=== PATIENT | female | born 1995 | race Caucasian/White ===

== ENCOUNTER 2018-07-23 17:19 | Emergency (ER) | payer OTHER ==
[~2018-07-23] VITALS: Ht 162.6 cm; Wt 70.3 kg
[2018-07-23] MEDS ORDERED: PREVIFEM TABLE1 EACH (17:37)
[2018-07-23] MEDS ORDERED: DICLOFENAC POTA50 MG PO (21:55)
== END 2018-07-23 22:46 | disposition home or self-care (01) ==
LOC: ER 17:19
DX: S20.212A Contusion of left front wall of thorax, initial encounter (principal); S13.4XXA Sprain of ligaments of cervical spine, initial encounter; V49.9XXA Car occupant (driver) (passenger) injured in unspecified traffic accident, initial encounter; Y93.89 Activity, other specified; Y92.488 Other paved roadways as the place of occurrence of the external cause; Y99.8 Other external cause status